=== PATIENT | female | born 1950 | race Caucasian/White ===

== ENCOUNTER 2022-09-05 09:42 | Outpatient (CLI) | payer MEDICARE, BC, SELFPAY ==
--- NOTE | 2022-09-05 09:54 | CTR_ITS ---
PROCEDURE INFORMATION: Exam: CT Lumbar Spine Without Contrast Exam date and time: 09/05/2022 10:31 AM Age: 72 years old Clinical indication: Low back pain; Additional info: Low back pain; Chronic low back pain with history of lumbar injections. TECHNIQUE: Imaging protocol: Computed tomography of the lumbar spine without contrast. Total images: 2 Radiation optimization: All CT scans at this facility use at least one of these dose optimization techniques: automated exposure control; mA and/or kV adjustment per patient size (includes targeted exams where dose is matched to clinical indication); or iterative reconstruction. REPORTING DATA: Count of CT and Cardiac NM exams in prior 12 months: This patient has received 0 known CTs and 0 known cardiac nuclear medicine studies in the 12 months prior to the current study. COMPARISON: No relevant prior studies available. RADIATION DOSE METRICS: Total DLP (mGy-cm): 459.47 FINDINGS: Bones/joints: L3-5 degenerative disc disease is noted with vacuum phenomenon and posterior disc bulge. Osteophytes are noted extending from the vertebrae. L4-L5 severe spinal stenosis secondary to combination of posterior disc bulge, ligament and facet hypertrophy. Vertebral body heights are maintained. No evidence of spondylolysis nor spondylolisthesis. Vasculature: Moderate atherosclerotic disease is evident. Soft tissues: Unremarkable. CT/CT lumbar spine wo con* [id number] IMPRESSION: 1. L4-L5 severe spinal stenosis secondary to combination of posterior disc bulge, ligament and facet hypertrophy. 2. Degenerative changes as described above but no acute pathology detected.
== END 2022-09-05 09:43 | disposition home or self-care (01) ==
LOC: RAD 09:50
PROVIDERS: PCP Family Medicine; Visit Provider Nurse Practitioner
DX: M54.51 Vertebrogenic low back pain (principal)
CPT/HCPCS: 72131

== ENCOUNTER → 2022-09-12 10:18 | Outpatient (BNVA) | payer MEDICARE, BC, SELFPAY | PROVIDERS: PCP Family Medicine; Visit Provider Internal Medicine Cardiovascular Disease | DX: I25.10 Atherosclerotic heart disease of native coronary artery without angina pectoris (principal); I25.5 Ischemic cardiomyopathy; Z95.810 Presence of automatic (implantable) cardiac defibrillator; I10 Essential (primary) hypertension; F32.A Depression, unspecified | CPT/HCPCS: 99205 ==

== ENCOUNTER → 2022-09-12 11:58 | Outpatient (BNVA) | payer MEDICARE, BC, SELFPAY | PROVIDERS: PCP Family Medicine; Visit Provider Internal Medicine Cardiovascular Disease | DX: R06.02 Shortness of breath (principal); I25.10 Atherosclerotic heart disease of native coronary artery without angina pectoris; I25.5 Ischemic cardiomyopathy; Z95.810 Presence of automatic (implantable) cardiac defibrillator; I10 Essential (primary) hypertension; F32.A Depression, unspecified | CPT/HCPCS: 36415; 80048; 83880 ==

== ENCOUNTER → 2022-09-16 14:29 | Outpatient (BNVA) | payer MEDICARE, BC, SELFPAY | PROVIDERS: PCP Family Medicine; Visit Provider Internal Medicine Cardiovascular Disease | DX: M54.50 Low back pain, unspecified (principal); M51.36 Other intervertebral disc degeneration, lumbar region; M48.061 Spinal stenosis, lumbar region without neurogenic claudication | CPT/HCPCS: 72120 ==

== ENCOUNTER → 2022-10-24 11:18 | Outpatient (BNVA) | payer MEDICARE, BC, SELFPAY | PROVIDERS: PCP Family Medicine; Visit Provider Family Medicine | DX: I10 Essential (primary) hypertension (principal) | CPT/HCPCS: 80053; 80061; 82043; 84443; 85025 ==

== ENCOUNTER → 2022-10-25 12:08 | Outpatient (BNVA) | payer MEDICARE, BC, SELFPAY | PROVIDERS: PCP Family Medicine; Visit Provider Family Medicine | DX: R79.89 Other specified abnormal findings of blood chemistry (principal) | CPT/HCPCS: 80074; 82728; 82784; 83036; 83516; 83550; 86003; 86008; 86618; 86666; 86757 ==

== ENCOUNTER 2022-10-28 07:32 | Emergency (ER) | payer MEDICARE, BC, SELFPAY ==
[2022-10-28 07:36] VITALS: BP 145/78; PULSE 63; RESP 18; TEMP 36.4; O2SAT 96; BMI 28.0
--- NOTE | 2022-10-28 07:52 | ED_ITS ---
HPI - Nausea/Vomiting/Diarrhea General: Chief complaint: Nausea/Vomiting/Diarrhea Stated complaint: n/v Time Seen by Provider: 10/28/22 07:42 Source: patient and family Mode of arrival: ambulatory Limitations: no limitations History of Present Illness: Patient is a 72-year-old female presents to ED today along with her for concerns of nausea, vomiting, diarrhea. Patient states she has felt incredibly nauseous over the past week or so. She states the nausea has been limiting her eating and drinking. She reports discomfort to her upper abdomen. She states yesterday she began vomiting and having diarrhea. She denies bloody emesis or stools. Denies black or tarry stools. No fevers. She does have a history of stomach problems reporting acid reflux and IBS. Patient reports she had labs performed through her PCP approximately 4 days ago which showed elevated liver enzymes . Additional testing/lab work was ordered and pending. Looking at previous documentation it looks like her AST/ALT were elevated in the 130s-160s range. Normal alk phos and tbili. She is status post cholecystectomy. Denies NSAID/etoh use. She was given PO Zofran that she states does not help. Denies ch est pain, SOB, difficulty breathing, palpitations, dizziness/lightheadedness. MD elicited complaint: nausea, vomiting, diarrhea and abdominal pain Pertinent past history: other (IBS, acid reflex) Associated nausea: Yes Associated abdominal pain: Yes Location of pain: Epigastric Pain consistency: constant Severity: moderate Quality: aching Exacerbating factors: eating Relieving factors: none Associated symtoms: Reports nausea; Denies chest pain, dizziness, dysuria, fatigue, headache(s) or malaise Review of Systems Const: Denies: fever(s), chills, body aches, fatigue or malaise Card: Denies: chest pain Resp: Denies: dyspnea GI: Reports: abdominal pain, nausea, vomiting and diarrhea; Denies: hematemesis, hematochezia or melena : Denies: flank pain, difficulty voiding, dysuria, hematuria or pelvic pain Musc: Reports: back pain (chronic-at baseline); Denies: neck pain, extremity pain, extremity swelling, joint pain, joint swelling or joint redness Skin/Breast: Denies: rash Neuro: Denies: headache(s) or dizziness PFSH ED PFSH: Medical History Benign essential HTN Cardiac defibrillator in place Placed in 2012 Chronic depression IBS (irritable bowel syndrome) Ischemic cardiomyopathy LBBB (left bundle branch block) Lumbar spondylolysis [place] (myocardial infarction) 2010 Pacemaker Panic disorder Prediabetes Surgical History H/O arthroscopy of knee H/O lumpectomy H/O: hysterectomy History of anterior colporrhaphy History of heart artery stent x 2 History of salpingo-oophorectomy History of tubal ligation Hx of cholecystectomy Physical Exam Const: COMMON NORMALS: no acute distress, average body habitus, patient oriented x3, no limitations, healthy appearing, alert and well nourished Eye: COMMON NORMALS: no scleral icterus Chest: COMMONS NORMALS: normal inspection of the chest and normal palpation of entire chest wall Resp: COMMON NORMALS: normal respiratory effort and clear to auscultation bilaterally AUSCULTATION: clear to auscultation bilaterally Cardio: COMMON NORMALS: regular rate and regular rhythm RATE: regular rate RHYTHM: regular rhythm GI: COMMON NORMALS: Normal to inspection, nondistended, normoactive bowel sounds present, Soft to palpation, No hepatosplenomegaly present and no masses INSPECTION: Yes normal to inspection AUSCULTATION: Yes normoactive bowel sounds PALPATION: Yes Soft to palpation, Yes Tenderness to palpation present (GI) (reports generalized discomfort with palpation; most of pain near epigastric), No Guarding due to palpation present (GI), No Rigid due to palpa tion and Yes No hepatosplenomegaly present : COMMON NORMALS: Yes no CVA tenderness BLADDER/KIDNEY EXAM: Yes no CVA tenderness Back/Pelvis: COMMON NORMALS: no CVA tenderness Extremity: COMMON NORMALS: normal to inspection, capillary refill normal, no clubbing, cyanosis or edema, no calf tenderness and no pedal edema GENERAL: Yes normal exam except as noted Neuro: JONY COMA SCALE: document GCS findings Jony coma scale eye opening: Spontaneous Jony coma scale verbal response: Orientated [place] coma scale motor response: Obey commands Jony coma scale total score: 15 COMMON NORMALS: patient oriented x3, moves all extremities, no focal motor deficits, no sensory deficits noted and gait normal SENSORIUM/ORIENTATION: Yes alert Skin: COMMON NORMALS: no rashes or lesions noted GENERAL SKIN EXAM: no rashes or lesions noted Course Vital Signs: Vital signs: Vital Signs Temperature 97.5 F L 10/28/22 07:36 Pulse Rate 65 10/28/22 08:13 Respiratory Rate 18 10/28/22 07:56 Blood Pressure 145/78 10/28/22 07:36 Pulse Oximetry 98 10/28/22 08:13 Oxygen Delivery Me thod Room Air 10/28/22 08:13 MDM - Nausea/Vomiting/Diarrhea Medical Decision Making Patient is a 72-year-old female who presents to ED today with complaint of nausea over the past week with vomiting and diarrhea starting yesterday. She arrives in no acute distress. Her vital signs are stable. Blood work including CBC, CMP, and lipase showing elevated liver enzymes. These were elevated 5 days ago. Her AST is essentially the same. ALT is slightly higher (169 versus 216). Alkaline phosphatase elevated today at 148 versus 101 5 days ago. Clinical significance of these unknown. T. bili remains normal as well as her lipase. CT scan of her abdomen and pelvis is very lengthy in its findings making it difficult to discern incidental findings versus findings of clinical significance. We went over this report in great detail together to try and tease these out. She has some hepatic steatosis with intra and extrahepatic biliary ductal dilatation. There is no comparison but this can be seen following cholecystectomy. There is no definite obstructive calculus. Given her normal T. bili I think obstruction is less likely. Some nonspecific findings to her kidneys/ureters/bladder. Patient has no urinary complaints. UA is positive for nitrates with trace leuks. Will culture for definitive confirmation. Again nonspecific findings to the small bowel. Patient does feel better after IV Reglan and GI cocktail. She already takes pantoprazole daily for her acid reflux/GERD. Discussed dietary restrictions. I think it is reasonable to have her liver enzymes rechecked through her primary care provider later this week. I think it is also reasonable for somebody to perform a comprehensive medication review for hepatotoxicity. Our pharmacy techs verified almost 20 different medications that patient takes. At this point I do not see/find any emergent cause of her N/V/D and elevated LFTs. Case discussed with Dr. Mckeon who agrees with care plan for patient. Strict return ED precautions given. Lab Data 10/28/22 08:05 10/28/22 08:05 Radiology Impressions Abdomen/Pelvis CT 10/28/22 08:33 IMPRESSION: 1. There is some mild hepatic steatosis along with extrahepatic and intrahepatic biliary ductal dilatation. No radiopaque obstructive calculus is currently appreciated. Consider biliary and hepatic profile studies. 2. There is some mild right hydroureter overall as compared to the left with no radiopaque obstructive calculus currently appreciated. This could be peristaltic related although could also be seen with processes including urinary tract inflammation. 3. The bowel gas pattern appears nonobstructive overall. There appears to be some subtle wall thickening although could represent layering content for example left abdominal small bowel. Consider dedicated small-bowel follow-through evaluation. Laboratory Results WBC 6.8 10^3/uL (4.0-10.0) 10/28/22 08:05 RBC 4.89 10^6/uL (4.1-5.3) 10/28/22 08:05 Hgb 13.7 g/dL (11.5-15.3) 10/28/22 08:05 Hct 43.0 % (37.0-47.0) 10/28/22 08:05 MCV 87.9 fl (81-99) 10/28/22 08:05 MCH 28.0 pg (28.0-34.0) 10/28/22 08:05 MCHC 31.9 g/dL (30.0-36.0) 10/28/22 08:05 RDW 12.8 % (12.1-15.1) 10/28/22 08:05 Plt Count 186 10^3/cmm (130-400) 10/28/22 08:05 MPV 11.0 fL (7.4-10.4) H 10/28/22 08:05 Neut % (Auto) 66.6 % 10/28/22 08:05 Lymph % (Auto) 21.4 % 10/28/22 08:05 [place] % (Auto) 9.6 % 10/28/22 08:05 Eos % (Auto) 1.8 % 10/28/22 08:05 Baso % (Auto) 0.3 % 10/28/22 08:05 Neut # (Auto) 4.52 10^3/uL (1.8-7.7) 10/28/22 08:05 Lymph # (Auto) 1.5 10^3/uL (0.8-4.8) 10/28/22 08:05 [place] # (Auto) 0.7 10^3/uL (0.2-0.9) 10/28/22 08:05 Eos # (Auto) 0.1 10^3/uL (0.0-0.8) 10/28/22 08:05 Baso # (Auto) 0.0 10^3/uL (0.0-0.1) 10/28/22 08:05 Nucleated RBC % (auto) 0 % 10/28/22 08:05 Nucleated RBCs # 0.0 /100WBC 10/28/22 08:05 Sodium 139 mmol/L (136-145) 10/28/22 08:05 Potassium 3.6 mmol/L (3.5-5.1) 10/28/22 08:05 Chloride 101 mmol/L (98-107) 10/28/22 08:05 Carbon Dioxide 29 mmol/L (22-29) 10/28/22 08:05 Anion Gap 12.6 (5-19) 10/28/22 08:05 BUN 11 mg/dL (8-23) 10/28/22 08:05 Creatinine 0.7 mg/dL (0.5-0.9) 10/28/22 08:05 GFR Calculation Not Reportable 10/28/22 08:05 Glucose 97 mg/dL (65-115) 10/28/22 08:05 Calculated Osmolality 287 mOsm/kg (285-295) 10/28/22 08:05 Calcium 9.7 mg/dL (8.5-10.5) 10/28/22 08:05 Total Bilirubin 0.7 mg/dL (0.15-1.2) 10/28/22 08:05 AST 133 U/L (0-32) H 10/28/22 08:05 ALT 216 U/L (0-33) H 10/28/22 08:05 Alkaline Phosphatase 148 U/L (35-105) H 10/28/22 08:05 Total Protein 6.7 g/dL (6.6-8.7) 10/28/22 08:05 Albumin 4.3 g/dL (3.5-5.2) 10/28/22 08:05 Globulin 2.4 g/dL (1.3-4.6) 10/28/22 08:05 Lipase 37 U/L (13-60) 10/28/22 08:05 Urine Color Yellow (Yellow) 10/28/22 10:08 Urine Appearance Hazy (CLEAR) A 10/28/22 10:08 Urine pH 5 (5-7) 10/28/22 10:08 Ur Specific [place] 1.005 (1.005-1.030) 10/28/22 10:08 Urine Protein Neg (Negative) 10/28/22 10:08 Urine Glucose (UA) Norm (Normal) 10/28/22 10:08 Urine Ketones Negative (Negative) 10/28/22 10:08 Urine Blood Neg (Negative) 10/28/22 10:08 Urine Nitrate Positive (Negative) H 10/28/22 10:08 Urine Bilirubin Neg (Negative) 10/28/22 10:08 Urine Urobilinogen Norm mg/dL (Negative) 10/28/22 10:08 Ur Leukocyte Esterase Trace (Negative) H 10/28/22 10:08 Urine RBC Rare /hpf (0-2) 10/28/22 10:08 Urine WBC 0-4 /hpf (0-5) H 10/28/22 10:08 Ur Squamous Epith Cells 0-4 /hpf (0-5) H 10/28/22 10:08 Amorphous Sediment Not Reportable 10/28/22 10:08 Urine Bacteria 3+ /hpf (NONE) H 10/28/22 10:08 Discharge Plan Discharge Patient Disposition: Home Clinical Impression: Elevated liver enzymes Nausea and vomiting Qualifiers: Vomiting type: unspecified Qualified Code(s): R11.2 - Nausea with vomiting, unspecified Condition: Stable Prescriptions: New Reglan 10 mg tablet 10 mg PO Q6H PRN (Reason: nausea and vomiting) Qty: 20 0RF No Action trazodone 50 mg tablet 150 mg PO BEDTIME carvedilol 25 mg tablet 25 mg PO Q12H Rx Instructions: must administer with a meal/food venlafaxine 150 mg tablet extended release 24hr 150 mg PO BID fluticasone propionate 50 mcg/actuation spray,suspension 1 spray intranasal BID Rx Instructions: administer into each nostril spironolactone 25 mg tablet 25 mg PO DAILY losartan 100 mg tablet 100 mg PO DAILY amlodipine 10 mg tablet 10 mg PO DAILY cyclosporine 0.05 % dropperette 1 drp ophthalmic (eye) Q12H nitroglycerin 0.4 mg tablet, sublingual 0.4 mg sublingual Q5M PRN (Reason: Chest Pain) Rx Instructions: do not exceed 3 doses per episode naloxone [Narcan] 4 mg/actuation spray,non-aerosol 4 mg intranasal Q2M Rx Instructions: spray 1 dose into ONE nostril; alternate nostrils w each dose until help arrives omega-3 fatty acids-fish oil 300-500 mg capsule 1 cap PO DAILY ubidecarenone-omega 3-vit E 25-150-200 mg-mg-unit capsule 1 cap PO DAILY cholecalciferol (vitamin D3) 125 mcg (5,000 unit) capsule 125 mcg PO DAILY turmeric root extract 500 mg capsule 500 mg PO DAILY acetaminophen [Tylenol Extra Strength] 500 mg tablet 500 mg PO Q6H PRN (Reason: Pain) Rexulti 1 mg tablet 1 mg PO DAILY Qty: 30 0RF oxycodone-acetaminophen 5-325 mg tablet 1 tab PO Q6H PRN (Reason: pain) 30 Days Qty: 60 0RF ezetimibe 10 mg tablet 10 mg PO DAILY Qty: 90 0RF pantoprazole 40 mg tablet,delayed release (DR/EC) 40 mg PO DAILY Qty: 90 0RF atorvastatin 80 mg tablet 80 mg PO EVERY OTHER DAY zolpidem 10 mg tablet 10 mg PO BEDTIME Discharge Orders: Discharge ED (Routine); Ordered 10/28/22 Ordered By: Rona Corral Referrals: Valentine Robertson DO [Primary Care Provider] - Activity Restrictions/Additional Instructions: As we discussed I would like you to see your primary care provider this week to discuss your medications to see if any of these could be responsible for your elevations in your liver enzymes. I would like these labs to be repeated later this week. If they continue to elevate you may require additional testing or imaging. You need to return to the emergency department for severe abdominal pains, repetitive episodes of nausea vomiting, diarrhea, fevers, yellowing to your skin or eyes, or any other concerns you may have. I hope you begin to feel better soon. Coding Level of Care Code ED Curtain Hemmer Automatic for Holly Maya
[2022-10-28 07:56] VITALS: RESP 18; O2SAT 98
[2022-10-28] MEDS: sodium chloride 0.9% 1,000 ML 999 ML IV (08:04)
[2022-10-28] MEDS: metoclopramide 5 mg/mL SDV 2 mL 10 MG IVP (08:05)
[2022-10-28] MEDS: lidocaine 2% viscous 15 ML, aluminum-mag hydrox-simethicon 30 ML, sucralfate oral liq 1 GM PO (08:06)
[2022-10-28 08:13] VITALS: PULSE 65; O2SAT 98
[2022-10-28 08:20] LABS: Basophils % 0.3 %; Eosinophils # 0.1 10^3/uL (0.0-0.8); Eosinophils % 1.8 %; Hemoglobin 13.7 g/dL (11.5-15.3); Lymphocytes # 1.5 10^3/uL (0.8-4.8); Lymphocytes % 21.4 %; Mean Corpuscular HGB Conc 31.9 g/dL (30.0-36.0); Mean Corpuscular Volume 87.9 fl (81-99); Monocytes # 0.7 10^3/uL (0.2-0.9); Monocytes % 9.6 %; Neutrophils # 4.52 10^3/uL (1.8-7.7); Neutrophils % 66.6 %; Nucleated Red Blood Cells % 0 %; Platelet Count 186 10^3/cmm (130-400); Red Blood Count 4.89 10^6/uL (4.1-5.3); Red Cell Distribution Width 12.8 % (12.1-15.1); White Blood Count 6.8 10^3/uL (4.0-10.0)
--- NOTE | 2022-10-28 08:33 | CTR_ITS ---
PROCEDURE INFORMATION: Exam: CT Abdomen And Pelvis With Contrast Exam date and time: 10/28/2022 8:59 AM Age: 72 years old Clinical indication: Nausea and vomiting; Abdominal pain; Localized; Right upper quadrant (ruq); Prior surgery; Surgery date: 6+ months; Surgery type: Gb, pacemaker, stents; Additional info: Ab pain, n/v/d.No history of trauma or recent surgery is provided. TECHNIQUE: Imaging protocol: Computed tomography of the abdomen and pelvis with contrast. 198image(s) are provided. Radiation optimization: All CT scans at this facility use at least one of these dose optimization techniques: automated exposure control; mA and/or kV adjustment per patient size (includes targeted exams where dose is matched to clinical indication); or iterative reconstruction. Contrast material: OMNI 350; Contrast volume: 100 ml; Contrast route: INTRAVENOUS (IV); Other technique: Axial images are available with sagittal and coronal reconstruction views. Automated dose exposure control is utilized. The DLP is 561.53. REPORTING DATA: Count of CT and Cardiac NM exams in prior 12 months: This patient has received [address] and 0 known cardiac nuclear medicine studies in the 12 months prior to the current study. COMPARISON: CT lumbar spine wo con* [id number] 09/05/2022 10:31 AM. No previous abdominal ultrasound or CT is currently available. RADIATION DOSE METRICS: Total DLP (mGy-cm): 561.53 FINDINGS: Tubes, catheters and devices: There are cardiac leads present. Lungs: No lobar consolidation is appreciated.There is minimal subsegmental atelectasis versus post inflammatory scarring demonstrated. There is a 3 mm ground-glass nodular focus demonstrated lateral basal right lower lobe series 3, image 6. There is some smaller adjacent. For patients at low risk (minimal or absent history of smoking and of other known risk factors), no routine follow-up is indicated. For patients at high risk (history of smoking or of other known risk factors), consider optional CT Chest at 12 months. (Reference: Tomasz) References: Tomsaz Ruiz et al. Guidelines for Management of Incidental Pulmonary Nodules Detected on CT Images: From the Fleischner Society 2017. Radiology. 2017;284(1):228-243. Diaphragm: There is slight asymmetric left hemidiaphragmatic elevation. Liver: There appears to be some mild hepatic steatosis along with slight periportal tracking. There are some chronic viki type calcification of the periportal space. Gallbladder and bile ducts: Cholecystectomy clips are present. There is some intrahepatic and extrahepatic biliary ductal dilatation demonstrated including the common bile duct measuring approximately 10.5 mm. No definite radiopaque obstructive calculus along the expected courses appreciated.Distal most, ampullary level evaluation is limited. Pancreas: No pancreatic level inflammatory stranding is appreciated. Spleen: Unremarkable. Adrenal glands: Unremarkable. Kidneys and ureters: There is some chronic renal cortical lobulation with relatively homogeneous parenchymal enhancement overall an extrarenal pelvis appearance. There is some punctate nonobstructive renal calcific appearance overall including at the lower poles. There appears to be some marginal hydroureter on the right with no radiopaque obstructive calculus currently appreciated. Stomach and bowel: Some aspects of the colon are undistended. This may also be peristaltic related.There is abundant stool present limiting mucosal detail evaluation. There is a small sliding-type hiatal hernia demonstrated with slight gastroesophageal fold thickening. There is some chronic diverticulosis demonstrated with sigmoid predominance. There are some small bowel fluid levels without abnormal dilatation overall appreciated. There is some questionable debris although could also represent some slight bowel wall thickening of the small bowel for example series 3, image 39. Appendix: The appendix is not definitively identified for evaluation. No adjacent stranding changes are appreciated. Intraperitoneal space: No free air or free fluid collections are appreciated. Vasculature: There are extremely dense atherosclerotic calcifications including the aorta with no interval saccular aortic aneurysmal dilatation appreciated. Lymph nodes: There are subcentimeter predominant para-aortic and mesenteric lymph nodes overall present. Urinary bladder: The bladder is incompletely fluid filled for evaluation which may exagerate the wall thickness. This can also be seen with post inflammation sequela. There is some bandlike scarring about the left aspect of the bladder which could be developmental versus previous intervention. Reproductive: There are hysterectomy changes present. Bones/joints: Osseous alignment is maintained.No displaced fracture or dislocation is appreciated.There is slightly decreased bone mineralization overall. There is some spurring with disc space narrowing of the lumbar spine overall contributing to some neural foraminal narrowing along with some dorsal disc bulging. This appears most pronounced at the L4-L5 level. Soft tissues: No radiopaque foreign body or subcutaneous emphysema is appreciated. Other findings: There is some motion artifact present. There are calcified injection type granulomas present posteriorly for example on the left. No other significant interval changes are appreciated. CT/CT abdomen pelvis w con* [id number] IMPRESSION: 1. There is some mild hepatic steatosis along with extrahepatic and intrahepatic biliary ductal dilatation. No radiopaque obstructive calculus is currently appreciated. Consider biliary and hepatic profile studies. 2. There is some mild right hydroureter overall as compared to the left with no radiopaque obstructive calculus currently appreciated. This could be peristaltic related although could also be seen with processes including urinary tract inflammation. 3. The bowel gas pattern appears nonobstructive overall. There appears to be some subtle wall thickening although could represent layering content for example left abdominal small bowel. Consider dedicated small-bowel follow-through evaluation.
[2022-10-28 08:41] LABS: Alanine Aminotransferase 216 U/L (0-33); Albumin Level 4.3 g/dL (3.5-5.2); Alkaline Phosphatase 148 U/L (35-105); Anion Gap 12.6 (5-19); Aspartate Amino Transferase 133 U/L (0-32); Blood Urea Nitrogen 11 mg/dL (8-23); Calcium 9.7 mg/dL (8.5-10.5); Carbon Dioxide 29 mmol/L (22-29); Chloride 101 mmol/L (98-107); Globulin 2.4 g/dL (1.3-4.6); Glucose 97 mg/dL (65-115); Lipase 37 U/L (13-60); Osmolality Calculated 287 mOsm/kg (285-295); Potassium 3.6 mmol/L (3.5-5.1); Sodium 139 mmol/L (136-145); Total Bilirubin 0.7 mg/dL (0.15-1.2); Total Protein 6.7 g/dL (6.6-8.7)
[2022-10-28] MEDS: iohexol 350 mg/mL 500 mL Btl (per mL) IV (09:04)
[2022-10-28 10:23] LABS: Add Urine Microscopic? YES; Bilirubin Urine Neg (Negative); Blood Urine Neg (Negative); Glucose Urine UA Norm (Normal); Ketones Urine Negative (Negative); Leukocyte Esterase Urine Trace (Negative); Nitrate Urine Positive (Negative); Protein Urine Neg (Negative); Specific Gravity, Urine 1.005 (1.005-1.030); Urine Appearance Hazy (CLEAR); Urine Color Yellow (Yellow); Urobilinogen Urine Norm (Negative); pH Urine 5 (5-7)
[2022-10-28 10:24] LABS: RBC Urine RARE /hpf (0-2); WBC Urine 0-4 /hpf (0-5)
[2022-10-28 10:25] LABS: Add Urine Culture? Yes; Bacteria Urine 3+ /hpf; Squamous Epithelial Cell Urine 0-4 /hpf (0-5)
== END 2022-10-28 10:44 | disposition home or self-care (01) ==
PROVIDERS: Emergency Provider Physician Assistant; PCP Family Medicine
DX: R11.2 Nausea with vomiting, unspecified (principal); R74.8 Abnormal levels of other serum enzymes; I10 Essential (primary) hypertension; I25.2 Old myocardial infarction; Z95.0 Presence of cardiac pacemaker
CPT/HCPCS: 74177; 80053; 81001; 83690; 85025; 87077; 87086; 87186; 96374; 99285; J2765; J7030; Q9967

== ENCOUNTER → 2022-11-04 15:48 | Outpatient (BNVA) | payer MEDICARE, BC, SELFPAY | PROVIDERS: PCP Family Medicine; Visit Provider Family Medicine | DX: K63.9 Disease of intestine, unspecified (principal); R11.2 Nausea with vomiting, unspecified; F51.04 Psychophysiologic insomnia; R79.89 Other specified abnormal findings of blood chemistry | CPT/HCPCS: 80053 ==

== ENCOUNTER 2022-11-15 10:18 | Outpatient (CLI) | payer MEDICARE, BC, SELFPAY ==
--- NOTE | 2022-11-15 10:30 | USCV_ITS ---
Klarissa Hernandez Age: 72 Gender: F : 1950 Exam Date: 11/15/2022 10:48 Ordering Phys: Shakir Shea MD ([email or web address]) Technologist: BRYON Exam Location: [facility] [place] Indication: CARDIOMYOPATHY ASHD BP: / HR: 68 Rhythm: Sinus Technical Quality: Adequate MEASUREMENTS (Male / Female) Normal Values 2D ECHO LV Diastolic Diameter PLAX 2.8 cm 4.2 - 5.9 / 3.9 - 5.3 cm LV Systolic Diameter PLAX 2.1 cm LV Chamber Size 3.4 cm IVS Diastolic Thickness 0.7 cm 0.6 - 1.0 / 0.6 - 0.9 cm IVS Systolic Thickness 0.9 cm LVPW Diastolic Thickness 1.0 cm 0.6 - 1.0 / 0.6 - 0.9 cm LVPW Systolic Thickness 1.2 cm RV Chamber Size 2.1 cm LVOT Diameter 2.0 cm LV Ejection Fraction 2D Teich 49.0 % LV Ejection Fraction MOD 2C 63.4 % LV Ejection Fraction 2C AL 63.9 % LA Diameter 3.0 cm LA Width 2.7 cm LA Height 3.1 cm RA Width 2.6 cm RA Height 3.1 cm Aorta at Sinotubular Diameter 2.3 cm IVC Diameter 1.4 cm M-MODE Aortic Annulus Diameter 2.8 cm LA Ao Ratio MM 1.3 MV E Point Septal Separation 0.6 cm DOPPLER AV Peak Velocity 143.0 cm/s LVOT Peak Velocity 81.0 cm/s AV Area Cont Eq vti 1.6 cm squared AV Area Cont Eq pk 1.8 cm squared MV Peak Velocity 132.0 cm/s MV Area PHT 3.3 cm squared Mitral E to A Ratio 0.7 MV E' Velocity 45.0 cm/s Mitral E to MV E' Ratio 16.1 Mitral E to LV E' Lateral Ratio 15.8 Mitral E to LV E' Septal Ratio 16.4 TR Peak Velocity 241.8 cm/s TR Peak Gradient 23.4 mmHg TR Mean Velocity 195.0 cm/s TR Mean Gradient 16.3 mmHg TR Velocity Time Integral 78.9 cm TV Peak E Velocity 111.0 cm/s Right Atrial Pressure 3.0 mmHg Pulmonary Artery Systolic Pressu 26.4 mmHg RV Acceleration Time 0.1 s RV Ejection Time 0.3 s RV AcT/ET 0.4 FINDINGS Left Ventricle Normal left ventricular size, systolic function and wall thickness with estimated ejection fraction 55 to 60%, with no regional wall motion abnormalities. Normal left ventricular wall thickness. Normal diastolic filling pattern. Right Ventricle The right ventricle is normal in size and function. Pacer wire was seen in the right ventricle Right Atrium The right atrium is normal in size. Left Atrium The left atrium is normal in size. Mitral Valve Structurally normal mitral valve without significant stenosis or prolapse. There is mild mitral regurgitation. Aortic Valve Structurally normal aortic valve without significant sclerosis or stenosis. There is no aortic regurgitation. Tricuspid Valve Structurally normal tricuspid valve without significant stenosis. There is mild regurgitation. Pulmonary artery systolic pressure is normal. Pulmonic Valve Structurally normal pulmonic valve without significant stenosis. There is no pulmonic regurgitation. Not well visualized Pericardium Normal pericardium without effusion. Aorta Normal ascending aorta dimension. IVC The inferior vena cava appears normal. CONCLUSIONS Normal LV function with no significant valvular disease Diego Hugo MD (Electronically Signed) Final Date: 16 November 2022 11:51 S
== END 2022-11-15 10:19 | disposition home or self-care (01) ==
LOC: RAD 10:21
PROVIDERS: PCP Family Medicine; Visit Provider Internal Medicine Cardiovascular Disease
DX: R06.09 Other forms of dyspnea (principal); I25.10 Atherosclerotic heart disease of native coronary artery without angina pectoris; I42.9 Cardiomyopathy, unspecified
CPT/HCPCS: 93306; 99205

== ENCOUNTER 2022-11-20 09:07 | Outpatient (CLI) | payer MEDICARE, BC, SELFPAY ==
--- NOTE | 2022-11-20 09:15 | FL_ITS ---
WS: [id number] EXAMINATION: FL small bowel series* [id number] REASON FOR EXAM: Nausea COMPARISON: None available. ORDER DATE: 11/20/2022 9:16 AM TECHNIQUE: The patient was able to ingest the barium solution without difficulty . The patient was then placed s upine for imaging of the small bowel. An ICD is noted. FINDINGS: [employer] scout film demonstrates a nonspecific bowel gas pattern and previous cholecystectomy.. Filming of the small bowel was concluded at 30 minutes indicating normal transit time. There was a normal patte rn of the mucosa of the small bowel without segmentation. Spot film imaging of the terminal ileum dem onstrated normal mucosal pattern. FL/FL small bowel series* [id number] IMPRESSION: NORMAL APPEARING SMALL BOWEL SERIES. FLUOROSCOPY TIME: 0min [id number] # OF SPOT FILMS: 2
== END 2022-11-20 09:08 | disposition home or self-care (01) ==
PROVIDERS: PCP Family Medicine; Visit Provider Family Medicine
DX: K63.9 Disease of intestine, unspecified (principal); R11.0 Nausea
CPT/HCPCS: 74250

== ENCOUNTER → 2022-11-27 12:05 | Outpatient (BNVA) | payer MEDICARE, BC, SELFPAY | PROVIDERS: PCP Family Medicine; Visit Provider Nurse Practitioner Family | DX: R10.2 Pelvic and perineal pain (principal) | CPT/HCPCS: 81000 ==

== ENCOUNTER → 2023-04-03 09:59 | Outpatient (BNVA) | payer MEDICARE, BC, SELFPAY | PROVIDERS: PCP Family Medicine; Visit Provider Internal Medicine Cardiovascular Disease | DX: I25.10 Atherosclerotic heart disease of native coronary artery without angina pectoris (principal); I11.0 Hypertensive heart disease with heart failure; I50.22 Chronic systolic (congestive) heart failure; Z95.810 Presence of automatic (implantable) cardiac defibrillator; F32.A Depression, unspecified | CPT/HCPCS: 99214 ==

== ENCOUNTER 2023-06-13 10:05 | Outpatient (CLI) | payer MEDICARE, SELFPAY ==
--- NOTE | 2023-06-13 10:07 | MM_ITS ---
WS: [id number] SCREENING DIGITAL BREAST TOMOSYNTHESIS MAMMOGRAM WITH CAD HISTORY: screening mammogram COMPARISON: None available. Bilateral CC and MLO with tomosynthesis and synthetic mammography submitted. Computer aided detection analyzed. Breast composition: The breasts are heterogeneously dense, which may obscure small masses. Focal area of architectural distortion in the upper outer quadrant of the RIGHT breast near 10:00. The remainin g breasts are negative. Benign round calcifications and arterial calcifications. Generator battery pa ck obscures a small portion of the LEFT axilla. IMPRESSION: MM/[place] [id number] BI-RADS: 0-Incomplete: Need additional imaging evaluation FOLLOW UP: Need Additional Imaging RIGHT breast: Spot compression views (CC and MLO). True ML. Ultrasound to follo w if abnormality persists. History of prior lumpectomy RIGHT breast. The area of distortion may be postsur gical but this needs to be further evaluated. No prior studies are available fo r comparison.
== END 2023-06-13 10:06 | disposition home or self-care (01) ==
LOC: RAD 10:05
PROVIDERS: PCP Family Medicine; Visit Provider Family Medicine
DX: Z12.31 Encounter for screening mammogram for malignant neoplasm of breast (principal); Z98.890 Other specified postprocedural states
CPT/HCPCS: 77063; 77067

== ENCOUNTER 2023-07-14 10:01 | Outpatient (CLI) | payer MEDICARE, BC, SELFPAY ==
--- NOTE | 2023-07-14 10:05 | MM_ITS ---
WS: [id number] ADDITIONAL VIEWS RIGHT MAMMOGRAM WITH DIGITAL BREAST TOMOSYNTHESIS. RIGHT BREAST ULTRASOUND HISTORY: abnormal mammogram COMPARISON: 06/13/2023 RIGHT MAMMOGRAM: Spot compression views and true ML with digital breast tomosynthesis and SM. Reidentified is a focal spiculation distortion in the upper outer quadrant of the RIGHT breast. No di screte mass is identified. There is tethering centrally. This will be further evaluated by ultrasound . RIGHT BREAST ULTRASOUND 2-D and color Doppler imaging submitted. Ultrasound is directed to the RIGHT breast in the upper outer quadrant. There is a hypoechoic mass wi th posterior shadowing and irregular margins at 11:00, 6 cm from the nipple. Mass measures 0.8 x 1.0 x 0.8 cm. No significant increased vascularity. IMPRESSION: MM/[place] [id number] BI-RADS: 4-Suspicious Finding-Biopsy Should Be Considered FOLLOW UP: Biopsy Recommended Ultrasound-guided biopsy recommended mass at 11:00, RIGHT breast. Notified Valentine Robertson DO at 07/14/2023 12:58 PM. I had to leave a voicemail concerning this patient Dr. Robertson's office. Nobody answered the phone. Voice mail was LEFT asking Dr. Robertson to review this patient's mammogram and ultraso und report.
== END 2023-07-14 10:02 | disposition home or self-care (01) ==
LOC: RAD 10:02
PROVIDERS: PCP Family Medicine; Visit Provider Family Medicine
DX: R92.8 Other abnormal and inconclusive findings on diagnostic imaging of breast (principal)
CPT/HCPCS: 76642; 77061; G0279

== ENCOUNTER → 2023-07-16 16:26 | Outpatient (BNVA) | payer MEDICARE, BC, SELFPAY | PROVIDERS: PCP Family Medicine; Visit Provider Internal Medicine | DX: Z45.02 Encounter for adjustment and management of automatic implantable cardiac defibrillator (principal) | CPT/HCPCS: 93296 ==

== ENCOUNTER 2023-07-30 10:24 | Outpatient (CLI) | payer MEDICARE, BC, SELFPAY ==
--- NOTE | 2023-07-30 11:45 | US_ITS ---
WS: [id number] ULTRASOUND-GUIDED RIGHT BREAST BIOPSY CLINICAL INFORMATION: Ultrasound-guided biopsy recommended mass at 11:00, RIGHT br FINDINGS: The procedure including risks, benefits, and complications were discussed with the patient who agreed to proceed. Using sterile technique patient was prepped and draped in the usual sterile fashion. Aft er 1% lidocaine utilizing real-time ultrasound guidance 6 14-gauge cores were obtained of the RIGHT b reast lesion at the 11 o'clock position 6 cm from the nipple. Subsequently a titanium clip was placed in the biopsy cavity. No immediate complications. Pathology demonstrates 1. Benign breast parenchyma with mild fibrocystic changes. Dense stromal fibrosis with focal scleros ing adenosis. Minimal usual ductal epithelial hyperplasia. 2. Rare intraductal microcalcifications identified. 3. No malignancy visualized. IMPRESSION: 1. Uncomplicated ultrasound-guided RIGHT breast biopsy. 2. The pathology demonstrates benign breast parenchyma with fibrocystic changes. Dense stromal fibro sis with focal sclerosing adenosis. Minimal usual ductal epithelial hyperplasia. 3. Recommend breast surgery consultation for resection. US/[place] [id number] BI-RADS: Post Biopsy FOLLOW UP: Surgical Biopsy Recommended Recommend breast surgery consultation for resection. Pathology is benign but co nsidering the suspicious imaging appearance and evidence of focal sclerosing ad enosis surgical resection recommended. Focal sclerosing adenosis increases the risk of breast cancer.
== END 2023-07-30 10:25 | disposition home or self-care (01) ==
LOC: RAD 10:25
PROVIDERS: PCP Family Medicine; Visit Provider Family Medicine
DX: N60.31 Fibrosclerosis of right breast (principal); N60.21 Fibroadenosis of right breast; R92.0 Mammographic microcalcification found on diagnostic imaging of breast
CPT/HCPCS: 19083; 88305; 88361; 88374

== ENCOUNTER → 2023-08-28 10:53 | Outpatient (BNVA) | payer MEDICARE, SELFPAY | PROVIDERS: PCP Family Medicine; Visit Provider Psychiatry & Neurology Psychiatry | DX: F41.0 Panic disorder [episodic paroxysmal anxiety] (principal); F41.1 Generalized anxiety disorder; F33.1 Major depressive disorder, recurrent, moderate | CPT/HCPCS: 80053; 80061; 83036; 84443 ==

== ENCOUNTER → 2023-11-17 11:19 | Outpatient (BNVA) | payer MEDICARE, SELFPAY | PROVIDERS: PCP Family Medicine; Visit Provider Family Medicine | DX: G31.84 Mild cognitive impairment of uncertain or unknown etiology (principal); E53.8 Deficiency of other specified B group vitamins | CPT/HCPCS: 82607 ==

== ENCOUNTER 2023-11-20 10:00 | Outpatient (CLI) | payer MEDICARE, BC, SELFPAY ==
--- NOTE | 2023-11-20 10:00 | CT_ITS ---
WS: [email or web address] CT HEAD TECHNIQUE: Noncontrast CT of the head obtained from the skullbase to the vertex. CLINICAL INFORMATION: cognitive impairment COMPARISON: None. DLP: 1005.[address] scans at [facility] use at least one of these dose optimization techniques: automated e xposure control; mA and/or kV adjustment per patient size (includes targeted exams where dose is matc hed to clinical indication); or iterative reconstruction. FINDINGS: No evidence of intracranial hemorrhage or mass effect. Ventricular system and basal cisterns are merlos nt. Mild small vessel changes with mild parenchymal volume loss. No extra-axial fluid collections. No evidence of mass or mass effect. Vascular calcification. Paranasal sinuses and mastoid air cells are well aerated. .Normal visualized soft tissues. CT/CT head wo con* [id number] IMPRESSION: 1. No evidence of intracranial hemorrhage or mass effect. 2. Mild small vessel changes. Mild parenchymal volume loss. 3. Intracranial vascular calcification. 4. No acute intracranial findings.
== END 2023-11-20 10:01 | disposition home or self-care (01) ==
PROVIDERS: PCP Family Medicine; Visit Provider Family Medicine
DX: G31.84 Mild cognitive impairment of uncertain or unknown etiology (principal); G93.89 Other specified disorders of brain
CPT/HCPCS: 70450

== ENCOUNTER → 2023-12-16 13:35 | Outpatient (BNVA) | payer MEDICARE, BC, SELFPAY | PROVIDERS: PCP Family Medicine; Visit Provider Internal Medicine Cardiovascular Disease | DX: Z45.02 Encounter for adjustment and management of automatic implantable cardiac defibrillator (principal) | CPT/HCPCS: 93296 ==

== ENCOUNTER → 2024-06-16 09:10 | Outpatient (BNVA) | payer MEDICARE, BC, SELFPAY | PROVIDERS: PCP Family Medicine; Visit Provider Internal Medicine Cardiovascular Disease | DX: Z45.02 Encounter for adjustment and management of automatic implantable cardiac defibrillator (principal) | CPT/HCPCS: 93296 ==

== ENCOUNTER → 2024-07-12 14:20 | Outpatient (BNVA) | payer MEDICARE, BC, SELFPAY | PROVIDERS: PCP Family Medicine; Visit Provider Internal Medicine Cardiovascular Disease | DX: I25.10 Atherosclerotic heart disease of native coronary artery without angina pectoris (principal); I11.0 Hypertensive heart disease with heart failure; I50.22 Chronic systolic (congestive) heart failure; Z95.810 Presence of automatic (implantable) cardiac defibrillator | CPT/HCPCS: 99214 ==

== ENCOUNTER → 2024-07-27 11:01 | Outpatient (BNVA) | payer MEDICARE, BC, SELFPAY | PROVIDERS: PCP Family Medicine; Referring Provider Family Medicine; Visit Provider Psychiatry & Neurology Neurology | DX: G31.84 Mild cognitive impairment of uncertain or unknown etiology (principal); R26.89 Other abnormalities of gait and mobility; N60.11 Diffuse cystic mastopathy of right breast; I50.22 Chronic systolic (congestive) heart failure; E55.9 Vitamin D deficiency, unspecified; E53.8 Deficiency of other specified B group vitamins | CPT/HCPCS: 99203 ==

== ENCOUNTER → 2024-07-27 11:52 | Outpatient (BNVA) | payer BC, MEDICARE, SELFPAY | PROVIDERS: PCP Family Medicine; Referring Provider Family Medicine; Visit Provider Psychiatry & Neurology Neurology | DX: R41.3 Other amnesia (principal); N60.11 Diffuse cystic mastopathy of right breast; G31.84 Mild cognitive impairment of uncertain or unknown etiology; I50.22 Chronic systolic (congestive) heart failure; E55.9 Vitamin D deficiency, unspecified; E53.8 Deficiency of other specified B group vitamins | CPT/HCPCS: 0346U; 36415; 82306; 82607; 82746; 83520; 83735; 83921; 84439; 84443; 84481 ==

== ENCOUNTER 2024-08-02 11:32 | Outpatient (CLI) | payer BC, MEDICARE, SELFPAY ==
--- NOTE | 2024-08-02 11:30 | USCV_ITS ---
Klarissa Hernandez Age: 74 Gender: F : 1950 Exam Date: 08/02/2024 11:42 Ordering Phys: Sabino Chun MD Technologist: R Exam Location: [facility] [place] Indication: balance issues Risk Factors: Previous Vascular Surgery: Right Brachial BP: / Left Brachial BP: / Right Left Velocity (cm/s) Spectral Plaque Velocity (cm/s) Spectral Plaque Syst/Diast Broadening Syst/Diast Broadening 84.10/ 19.30 Prox CCA 83.60 / 20.20 79.30/ 19.20 Mid CCA 83.70 / 23.60 70.60/ 20.30 Distal CCA 67.30 / 18.40 73.90/ 21.40 Prox ICA 63.50 / 21.80 83.70/ 26.90 Mid ICA 58.20 / 7.80 75.90/ 20.30 Distal ICA 57.90 / 15.20 76.10 ECA 59.00 1.00 ICA/CCA 0.90 Antegrade Vertebral Antegrade 43.80/ 10.00 cm/s 60.90/ 18.50 cm/s Tri Subclavian Tri 68.50 81.20 FINDINGS Comparison: none available. No significant elevation of systolic or diastolic velocities. Waveforms are normal. Mild carotid plaque. CONCLUSIONS Bilateral ICA stenosis less than 50%. Dr. Sivan Dhillon DO (Electronically Signed) Final Date: 02 August 2024 16:13 S
== END 2024-08-02 11:33 | disposition home or self-care (01) ==
PROVIDERS: PCP Family Medicine; Visit Provider Psychiatry & Neurology Neurology
DX: R41.3 Other amnesia (principal); R26.89 Other abnormalities of gait and mobility; I65.23 Occlusion and stenosis of bilateral carotid arteries
CPT/HCPCS: 93880

== ENCOUNTER 2024-08-11 14:23 | Outpatient (CLI) | payer MEDICARE, BC, SELFPAY ==
--- NOTE | 2024-08-11 14:30 | CT_ITS ---
WS: [email or web address] CT HEAD TECHNIQUE: Noncontrast and contrast-enhanced CT of the head. CLINICAL INFORMATION: R41.3 - Other amnesia COMPARISON: 2023 DLP: 1970.[address] scans at [facility] use at least one of these dose optimization techniques: automated exposure control; mA and/or kV adjustment per patient size (includes targeted exams where dose is matched to clinical indication); or iterative reconstruction. FINDINGS: No evidence of intracranial hemorrhage or mass effect. Ventricular system and basal cisterns are patent. No abnormal intracranial enhancement. The paranasal sinuses are well aerated. Mastoid air cells are well aerated. Mild small vessel changes. Mild parenchymal volume loss. Vascular calcification. CT/CT head wo/w con [id number] IMPRESSION: 1. No evidence of intracranial hemorrhage or mass effect. 2. No significant interval changes. 3. Mild small vessel changes with mild parenchymal volume loss.
[2024-08-11] MEDS: iohexol 350 mg/mL 500 mL Btl (per mL) IV (15:23)
[2024-08-11 15:31] LABS: Blood Urea Nitrogen 11 mg/dL (8-23)
== END 2024-08-11 14:24 | disposition home or self-care (01) ==
PROVIDERS: PCP Family Medicine; Visit Provider Psychiatry & Neurology Neurology
DX: R41.3 Other amnesia (principal); I67.82 Cerebral ischemia; G31.89 Other specified degenerative diseases of nervous system; I67.2 Cerebral atherosclerosis
CPT/HCPCS: 70470; 82565; 84520

== ENCOUNTER → 2024-08-17 11:23 | Outpatient (BNVA) | payer MEDICARE, BC, SELFPAY | PROVIDERS: PCP Family Medicine; Visit Provider Family Medicine | DX: I10 Essential (primary) hypertension (principal); R73.03 Prediabetes | CPT/HCPCS: 80053; 80061; 83036; 85025 ==

== ENCOUNTER → 2024-11-10 14:14 | Outpatient (BNVA) | payer MEDICARE, BC, SELFPAY | PROVIDERS: PCP Family Medicine; Referring Provider Family Medicine; Visit Provider Psychiatry & Neurology Neurology | DX: G31.84 Mild cognitive impairment of uncertain or unknown etiology (principal); R26.89 Other abnormalities of gait and mobility; N60.11 Diffuse cystic mastopathy of right breast; I50.22 Chronic systolic (congestive) heart failure; E55.9 Vitamin D deficiency, unspecified; E53.8 Deficiency of other specified B group vitamins | CPT/HCPCS: 36415; 82542; 99212 ==

== ENCOUNTER → 2024-12-16 08:08 | Outpatient (BNVA) | payer MEDICARE, BC, SELFPAY | PROVIDERS: PCP Family Medicine; Visit Provider Nurse Practitioner Family | DX: L81.4 Other melanin hyperpigmentation (principal); L57.8 Other skin changes due to chronic exposure to nonionizing radiation; D22.62 Melanocytic nevi of left upper limb, including shoulder; L82.1 Other seborrheic keratosis; L57.0 Actinic keratosis | CPT/HCPCS: 17000; 99203 ==

== ENCOUNTER → 2024-12-22 11:19 | Outpatient (BNVA) | payer MEDICARE, BC, SELFPAY | PROVIDERS: PCP Family Medicine; Visit Provider Internal Medicine Cardiovascular Disease | DX: Z45.02 Encounter for adjustment and management of automatic implantable cardiac defibrillator (principal) | CPT/HCPCS: 93296 ==

== ENCOUNTER → 2025-02-02 10:09 | Outpatient (BNVA) | payer MEDICARE, BC, SELFPAY | PROVIDERS: PCP Family Medicine; Visit Provider Internal Medicine Cardiovascular Disease | DX: I25.10 Atherosclerotic heart disease of native coronary artery without angina pectoris (principal); I11.0 Hypertensive heart disease with heart failure; I50.20 Unspecified systolic (congestive) heart failure; Z95.810 Presence of automatic (implantable) cardiac defibrillator; Z95.5 Presence of coronary angioplasty implant and graft; I25.2 Old myocardial infarction | CPT/HCPCS: 99214 ==

== ENCOUNTER → 2025-04-20 13:01 | Outpatient (BNVA) | payer MEDICARE, BC, SELFPAY | PROVIDERS: PCP Family Medicine; Visit Provider Internal Medicine Cardiovascular Disease | DX: Z45.02 Encounter for adjustment and management of automatic implantable cardiac defibrillator (principal) | CPT/HCPCS: 93296 ==